=== PATIENT | female | born 1980 | race Caucasian/White ===

== ENCOUNTER 2016-12-22 09:03 | Day surgery (SDC) | payer MEDICAID, OTHER ==
[2016-12-22] VITALS (13 sets, daily range): BP systolic 98–125; BP diastolic 48–65; PULSE 64–78; RESP 12–26; Ht 165.1 cm; Wt 74.0 kg
[~2016-12-22] VITALS: Ht 165.1 cm; Wt 74.0 kg
[2016-12-22 10:24] LABS: ADD SCAN DIFF NO
[2016-12-22 10:30] LABS: BASOPHILS % 0.3 % (0.0-2.0); EOSINOPHILS # 0.1 10^3/ul (0.0-0.5); EOSINOPHILS % 1.2 % (0.0-7.0); HEMOGLOBIN 13.3 g/dl (12.0-16.0); LYMPHOCYTES # 1.8 10^3/ul (0.8-2.9); LYMPHOCYTES % 29.8 % (15.0-51.0); MEAN CORPUSCULAR HEMOGLOBIN 31.4 pg (29.0-33.0); MEAN CORPUSCULAR VOLUME 89.6 fl (82.0-101.0); MEAN PLATELET VOLUME 10.2 fl (7.4-10.4); MONOCYTE # 0.5 10^3/ul (0.3-0.9); MONOCYTES % 7.9 % (0.0-11.0); NEUTROPHIL # 3.7 10^3/ul (1.6-7.5); NEUTROPHILS % 60.6 % (39.0-77.0); PLATELET COUNT 239 10^3/UL (140-415); RED BLOOD COUNT 4.24 10^6/ul (4.20-5.40); WHITE BLOOD COUNT 6.1 10^3/ul (4.8-10.8)
--- NOTE | 2016-12-22 10:38 | RADRPT ---
PROCEDURE: US OB. CLINICAL INDICATION: Missed TECHNIQUE: Transabdominal and endovaginal imaging of the gravid uterus is available for review COMPARISON: None available FINDINGS: There is a single intrauterine with a crown-rump length of 2.52 cm, giving an estimated ge stational age of 9 weeks 6 days by ultrasound criteria. No heart tones are detected. There is prominence of the nuchal fold. No subchorionic hemorrhage is identified. There is a 5.8 x 5.7 x 6. 0 cm right lateral intramural fibroid. The ovaries demonstrate a left ovarian corpus luteum cyst. IMPRESSION: 1. Single intrauterine with an estimated gestational age of 9 weeks 6 days by ultrasound criteria. No heart tones are detected. Findings are compatible with early failed . 2. Prominent nuchal fold. 3. Right lateral uterine body intramural fibroid measuring 5.8 x 5.7 x 6.0 cm. RPTAT: HH .Janice Krause MD, Date Time Electronically viewed and signed by .Janice Krause MD, on 12/22/2016 10:38 .G/
[2016-12-22] MEDS ORDERED: FENTAnyl 50 MCG/ML VIAL ONE (13:18)
[2016-12-22] MEDS ORDERED: PROPOFOL 20 ML ONE (13:18)
[2016-12-22] MEDS ORDERED: MIDAZOLAM 1 MG/ML 2 ML INJ ONE (13:18)
[2016-12-22] MEDS ORDERED: METOCLOPRAMIDE 10 MG INJ ONE (13:19)
[2016-12-22] MEDS ORDERED: OXYTOCIN 10 UNIT INJ ONE (13:37)
[2016-12-22] MEDS ORDERED: KETOROLAC 30 MG INJ ONE (13:40)
[2016-12-22] MEDS ORDERED: METHYLERGONOVINE 0.2 MG INJ ONE (13:43)
--- NOTE | 2016-12-22 13:50 | PDOCDIS ---
Discharge Instructions CONDITION Patient Condition: Good HOME CARE INSTRUCTIONS: Diet Instructions: Regular ACTIVITY: Activity Restrictions: No Sexual Activity Do not Drive Bathing Restrictions: Shower FOLLOW UP/APPOINTMENTS Appointments appointment ,office in 1 week BRIGIDA MIDDLETON MD Dec 22, 2016 13:50
--- NOTE | 2016-12-22 13:59 | DS ---
Date/Time of Note Date/Time of Note DATE: 12/22/16 TIME: 13:53 Discharge Summary Admission/Discharge Info Admit Date/Time 12/22/16 Discharge Date/Time 12/22/16 Final Diagnosis missed Patient Condition: Good Procedures dilatation suction curettage Hx of Present Illness missed 9 weeks Hospital Course good Home Meds No Active Prescriptions or Reported Meds Follow-up Plan appointment office in one week Pending Labs Laboratory Tests Test 12/22/16 09:50 White Blood Count 6.110^3/ul (4.8-10.8) Red Blood Count 4.2410^6/ul (4.20-5.40) Hemoglobin 13.3g/dl (12.0-16.0) Hematocrit 38.0% (37.0-47.0) Mean Corpuscular Volume 89.6fl (82.0-101.0) Mean Corpuscular Hemoglobin 31.4pg (29.0-33.0) Mean Corpuscular Hemoglobin Concent 35.0g/dl (32.0-37.0) Red Cell Distribution Width 12.0% (11.5-14.5) Platelet Count 76865^3/UL (140-415) Mean Platelet Volume 10.2fl (7.4-10.4) Neutrophils % 60.6% (39.0-77.0) Lymphocytes % 29.8% (15.0-51.0) Monocytes % 7.9% (0.0-11.0) Eosinophils % 1.2% (0.0-7.0) Basophils % 0.3% (0.0-2.0) Nucleated Red Blood Cells % 0.0/100WBC (0.0-0.0) Neutrophils # 3.710^3/ul (1.6-7.5) Lymphocytes # 1.810^3/ul (0.8-2.9) Monocytes # 0.510^3/ul (0.3-0.9) Eosinophils # 0.110^3/ul (0.0-0.5) Basophils # 0.010^3/ul (0.0-0.1) Nucleated Red Blood Cells # 0.010^3/ul (0.0-0.0) BRIGIDA MIDDLETON MD Dec 22, 2016 13:59
[2016-12-22] MEDS ORDERED: HYDROmorphONE (0.2 MG/ML) 10ML SYG IV PRN ×3 (14:00)
[2016-12-22] MEDS ORDERED: MEPERIDINE 25 MG INJ IV PRN (14:00)
[2016-12-22] MEDS ORDERED: DIPHENHYDRAMINE 50 MG INJ IV PRN (14:00)
[2016-12-22] MEDS ORDERED: IBUPROFEN 600 MG TAB PO PRN (14:00)
[2016-12-22] MEDS ORDERED: KETOROLAC 30 MG INJ IV PRN (14:00)
--- NOTE | 2016-12-22 14:06 | OPR ---
DATE OF OPERATION: 12/22/2016 PREOPERATIVE DIAGNOSIS: Missed at 10 weeks' gestation. POSTOPERATIVE DIAGNOSIS: Missed at 10 weeks' gestation. PROCEDURE: Dilatation and suction curettage. SURGEON: Brigida Middleton MD ANESTHESIA: General. ANESTHESIOLOGIST: Sue Shukla MD DETAILS OF THE PROCEDURE: Under satisfactory general anesthesia, the patient was prepped and draped and placed in dorsal lithotomy position. Bimanual pelvic examination: Normal marital introitus, n ormal vagina, cervix multiparous. Uterus 10 weeks' size. Adnexa not palpable. Weighted speculum i ntroduced into the vagina. Anterior cervical lip grasped by Nixon tenaculum. Uterine cavity sounde d, measured 11 cm. Cervical dilatation further advanced with Daniele dilator. Vacurette #9 was used f or vacuum suction and it was followed with a #8 Vacurette and the entire uterine cavity from 12 o'cl ock counterclockwise curetted gently with a medium sized sharp curette. The entire specimen submitt ed to pathology. The patient tolerated the procedure well. Estimated blood loss 100 mL. She was t ransferred to recovery room in a good condition. Dictated By: BRIGIDA MIDDLETON MD HF/NTS Conf#: [id number] DID#: [id number]
== END 2016-12-22 15:20 | disposition home or self-care (01) ==
LOC: SDS 09:03
PROVIDERS: ATTEND Obstetrics & Gynecology
DX: O01.9 Hydatidiform mole, unspecified (principal)
CPT/HCPCS: 59870; 76801; 76817; 85025; 86850; 86900; 86901; 88305; J1885; J2210; J2250; J2590; J2765; J3010; Z7512; Z7610

== ENCOUNTER 2017-01-05 10:37 | Day surgery (SDC) | payer OTHER ==
[~2017-01-05] VITALS: Ht 165.1 cm; Wt 70.9 kg
[2017-01-05] VITALS (13 sets, daily range): BP systolic 115–131; BP diastolic 60–83; PULSE 56–96; RESP 10–20; Ht 165.1 cm; Wt 70.9 kg
[~2017-01-05 10:37] MED LIST: SEVOFLURANE 15 MIN ONE
[2017-01-05] MEDS ORDERED: MIDAZOLAM 1 MG/ML 2 ML INJ ONE (11:16)
[2017-01-05] MEDS ORDERED: FENTAnyl 50 MCG/ML VIAL ONE (11:16)
[2017-01-05] MEDS ORDERED: DEXAMETHASONE 4 MG/ML 1 ML INJ ONE (11:16)
[2017-01-05] MEDS ORDERED: LIDOCAINE 2% (SDV) 5 ML INJ ONE (11:16)
[2017-01-05] MEDS ORDERED: PROPOFOL 20 ML ONE (11:16)
[2017-01-05] MEDS ORDERED: ONDANSETRON 4 MG INJ ONE (11:16)
[2017-01-05 11:44] LABS: ADD SCAN DIFF NO
[2017-01-05 11:50] LABS: ADD UMIC YES; URINE BILIRUBIN (Dip) NEGATIVE (NEGATIVE); URINE BLOOD (Dip) 3+ (NEGATIVE); URINE COLOR LT. YELLOW (YELLOW); URINE GLUCOSE (Dip) NEGATIVE (NEGATIVE); URINE KETONES (Dip) NEGATIVE (NEGATIVE); URINE LEUKOCYTE ESTERASE (Dip) 1+ (NEGATIVE); URINE NITRITE (Dip) NEGATIVE (NEGATIVE); URINE TOTAL PROTEIN (Dip) NEGATIVE (NEGATIVE); URINE UROBILINOGEN (Dip) 0.2 E.U./dL (0.1-1.0)
[2017-01-05 11:52] LABS: BASOPHILS % 0.7 % (0.0-2.0); EOSINOPHILS # 0.1 10^3/ul (0.0-0.5); EOSINOPHILS % 1.9 % (0.0-7.0); HEMATOCRIT 41.6 % (37.0-47.0); HEMOGLOBIN 14.1 g/dl (12.0-16.0); LYMPHOCYTES # 2.3 10^3/ul (0.8-2.9); LYMPHOCYTES % 39.2 % (15.0-51.0); MEAN CORPUSCULAR HEMOGLOBIN 31.1 pg (29.0-33.0); MEAN CORPUSCULAR HGB CONC 33.9 g/dl (32.0-37.0); MEAN CORPUSCULAR VOLUME 91.6 fl (82.0-101.0); MEAN PLATELET VOLUME 9.9 fl (7.4-10.4); MONOCYTE # 0.5 10^3/ul (0.3-0.9); MONOCYTES % 7.7 % (0.0-11.0); NEUTROPHIL # 2.9 10^3/ul (1.6-7.5); NEUTROPHILS % 50.3 % (39.0-77.0); PLATELET COUNT 273 10^3/UL (140-415); RED BLOOD COUNT 4.54 10^6/ul (4.20-5.40); WHITE BLOOD COUNT 5.8 10^3/ul (4.8-10.8)
--- NOTE | 2017-01-05 11:58 | HP ---
Date/Time of Note Date/Time of Note DATE: 01/05/17 TIME: 11:48 Assessment/Plan VTE Prophylaxis VTE Prophylaxis Intervention: ambulation Lines/Catheters IV Catheter Type (from [facility]): Peripheral IV Assessment/Plan Assessment/Plan 36-year-old History of intrauterine embryonic demise, missed Status post D&C Pathology showed molar, ? . HCG, and 900s range Repeat ultrasound showed some echogenic material inside the uterine cavity, Patient started having bleeding again Candidate for hysteroscopy, possible D&C, possible removal of retained POC. Risk and benefit of procedure including risk of infection, bleeding, damage to surrounding structures including bowel and bladder and risk of uterine perforation, discussed with the patient. Risk of blood transfusion in case if necessary including risk of blood-borne infection including HIV, hepatitis B and C and transfusion reactions discussed with the patient in detail Informed consent was obtained Patient received 100 mg doxycycline prior to be taken to the OR I have discussed with the patient that in case of missed the pathology finding sometimes correlates with some hydropic changes that could be reported as molar . She understands that after this procedure she need to have a close follow-up with her primary biometry teacher Dr. Underwood for pathology report and for final polyp follow-up plan Patient verbalized understanding. All questions were answered to the patient's best satisfaction. HPI/ROS Admit Date/Time Admit Date/Time 01/05/2017 Hx of Present Illness patient is a 36 years old AA female that had been seen and that Dr. Underwood 's office for follow-up after D&C done for intrauterine embryonic demise About 2 weeks ago. Patient reports her LMP was September 30, 2016. She had an ultrasound earlier at the beginning of at about 6-7 weeks at [facility] and was diagnosed with a normal IUP. Cardiac activity was present. She had a follow-up 2 weeks later with repeat ultrasound that did not show any cardiac activity. She also had another repeat ultrasound next day at breast imaging center next to [facility] that confirmed antibiotic demise. Patient sent subsequently to Dr. Underwood due to intrauterine numbering device and underwent D&C 2 weeks ago. Pathology reported molar . Patient had a started having vaginal bleeding since yesterday. Her repeat ultrasound last week in the office showed thickened endometrium with some echogenic material inside the uterine cavity, questionable for retained POC. Her hCG is currently 900. Patient was a scheduled today for ROS Subjective hx not possible: pt non-verbal Constitutional: no complaints Eyes: no complaints ENT: no complaints Respiratory: no complaints Cardiovascular: no complaints Gastrointestinal: no complaints Genitourinary: bleeding Musculoskeletal: no complaints Skin: no complaints Neurologic: no complaints Endocrine: no complaints Lymphatic: no complaints Psychological: no complaints Immunologic: no complaints PMH/Family/Social Past Medical History none Past Surgical History D&C x 1 Tonsillectomy Family History Significant Family History: no pertinent family hx Social History Alcohol Use: occasionally Smoking Status: Former smoker Drug Use: none Exam/Review of Systems Vital Signs Vitals Vital Signs Date Time Temp Pulse Resp B/P Pulse Ox O2 Delivery O2 Flow Rate FiO2 01/05/17 11:27 97.7 69 20 115/72 98 Room Air Exam Constitutional: alert, oriented, well developed Psych: nl mood/affect, no complaints Head: atraumatic, normocephalic Eyes: nl conjunctiva ENMT: nl external ears & nose, nl lips & teeth Neck: non-tender, supple Respiratory: clear to auscultation Cardiovascular: nl pulses, regular rate and rhythm Gastrointestinal: nl liver, spleen, soft Genitourinary - Female: nl adnexae, nl external genitalia, uterus (There is a 2 and half centimeter posterior uterine fibroid palpable through the cul-de-sac as well as a 1 x 1 cm soft smooth vaginal cyst in the upper vaginal wall in the right side palpable. Uterus about 10 cm size. No tenderness. No CMT.. There is no fullness in adnexa noted. No tenderness in adnexa. Speculum vaginal examination: Cervix appeared to be closed and long. Scant amount of brownish vaginal discharge noted. No abnormal other vaginal discharge noted.) Musculoskeletal: nl extremities to inspection, nl gait and stance Extremities: normal pulses Neurological: [employer] II-XII intact, nl mental status, nl speech Medications Medications Current Medications Doxycycline Hyclate/Sodium Chloride (Vibramycin/NS) 250 ml @ 250 mls/hr ONCE IVPB ; Start 01/05/17 at 12:00; Stop 01/05/17 at 19:00 BO EDMOND MD Jan 05, 2017 11:58 BO EDMOND MD Jan 05, 2017 11:58
[2017-01-05] MEDS ORDERED: DOXYCYCLINE 100 MG in SOD CHLORIDE 0.9% 250 ML IVPB SCH (12:00)
[2017-01-05] MEDS ORDERED: HYDROmorphONE (0.2 MG/ML) 10ML SYG IV PRN ×3 (12:00)
[2017-01-05] MEDS ORDERED: FENTAnyl 50 MCG/ML VIAL IV PRN ×3 (12:00)
[2017-01-05] MEDS ORDERED: MEPERIDINE 25 MG INJ IV PRN (12:00)
[2017-01-05] MEDS ORDERED: ONDANSETRON 4 MG INJ IV PRN (12:00)
[2017-01-05] MEDS ORDERED: DIPHENHYDRAMINE 50 MG INJ IV PRN (12:00)
[2017-01-05 12:11] LABS: BACTERIA,URINE OCCASIONAL
[2017-01-05 12:35] LABS: INR 0.99; PROTIME 13.1 Sec (12.2-14.2)
[2017-01-05 12:36] LABS: PARTIAL THROMBOPLASTIN TIME 30.7 Sec (25.0-35.0)
[2017-01-05] MEDS ORDERED: FAMOTIDINE 20 MG INJ ONE (12:39)
[2017-01-05] MEDS ORDERED: KETOROLAC 30 MG INJ ONE (12:56)
[2017-01-05] MEDS ORDERED: METHYLERGONOVINE 0.2 MG INJ ONE (13:00)
[2017-01-05] MEDS ORDERED: IBUPROFEN 600 MG TAB PO PRN (13:30)
[2017-01-05] MEDS ORDERED: KETOROLAC 30 MG INJ IV PRN (13:30)
--- NOTE | 2017-01-05 13:35 | DS ---
Date/Time of Note Date/Time of Note DATE: 01/05/17 TIME: 13:27 Discharge Summary Admission/Discharge Info Admit Date/Time 36 years old female admitted to [facility] for ultrasound diagnosed thickening of endometrium 20 mm status post missed D&C underwent hysteroscopy D&C some tissues obtained were submitted for the pathology patient postoperative course and condition at the time of discharge satisfactory, she is discharged home with follow-up instruction to be seen in the office in 1 week and to be followed with hCG quantitative. Discharge Date/Time January 05, 2017 Final Diagnosis Endometrial thickening possible retained products of conception Patient Condition: Good Procedures Hysteroscopic diagnostic curettage for endometrial thickening and questionable partial molar degeneration Hx of Present Illness patient is a 36 years old AA female that had been seen and that Dr. Middleton 's office for follow-up after D&C done for intrauterine embryonic demise About 2 weeks ago. Patient reports her LMP was September 30, 2016. She had an ultrasound earlier at the beginning of at about 6-7 weeks at [facility] and was diagnosed with a normal IUP. Cardiac activity was present. She had a follow-up 2 weeks later with repeat ultrasound that did not show any cardiac activity. She also had another repeat ultrasound next day at breast imaging center next to [facility] that confirmed antibiotic demise. Patient sent subsequently to Dr. Middleton due to intrauterine numbering device and underwent D&C 2 weeks ago. Pathology reported molar . Patient had a started having vaginal bleeding since yesterday. Her repeat ultrasound last week in the office showed thickened endometrium with some echogenic material inside the uterine cavity, questionable for retained POC. Her hCG is currently 900. Patient was a scheduled today for Hospital Course Satisfactory Home Meds No Active Prescriptions or Reported Meds Follow-up Plan Recommended take appointment for 1 week to be seen at the clinic, post D&C precautionary measure including pelvic rest and no items in the vagina no douching discussed with the patient Pending Labs Laboratory Tests Test 01/05/17 11:20 01/05/17 12:15 White Blood Count 5.810^3/ul (4.8-10.8) Red Blood Count 4.5410^6/ul (4.20-5.40) Hemoglobin 14.1g/dl (12.0-16.0) Hematocrit 41.6% (37.0-47.0) Mean Corpuscular Volume 91.6fl (82.0-101.0) Mean Corpuscular Hemoglobin 31.1pg (29.0-33.0) Mean Corpuscular Hemoglobin Concent 33.9g/dl (32.0-37.0) Red Cell Distribution Width 12.0% (11.5-14.5) Platelet Count 06805^3/UL (140-415) Mean Platelet Volume 9.9fl (7.4-10.4) Neutrophils % 50.3% (39.0-77.0) Lymphocytes % 39.2% (15.0-51.0) Monocytes % 7.7% (0.0-11.0) Eosinophils % 1.9% (0.0-7.0) Basophils % 0.7% (0.0-2.0) Nucleated Red Blood Cells % 0.0/100WBC (0.0-0.0) Neutrophils # 2.910^3/ul (1.6-7.5) Lymphocytes # 2.310^3/ul (0.8-2.9) Monocytes # 0.510^3/ul (0.3-0.9) Eosinophils # 0.110^3/ul (0.0-0.5) Basophils # 0.010^3/ul (0.0-0.1) Nucleated Red Blood Cells # 0.010^3/ul (0.0-0.0) Urine Color LT. YELLOW (YELLOW) Urine Clarity CLEAR (CLEAR) Urine pH 6.0 (5.0-9.0) Urine Specific [place] 1.020 (1.003-1.030) Urine Ketones NEGATIVE (NEGATIVE) Urine Nitrite NEGATIVE (NEGATIVE) Urine Bilirubin NEGATIVE (NEGATIVE) Urine Urobilinogen 0.2 E.U./dL (0.1-1.0) Urine Leukocyte Esterase 1+ (NEGATIVE) Urine Microscopic RBC 5-10/HPF (0) Urine Microscopic WBC 2-5/HPF (0) Urine Epithelial Cells OCCASIONAL Urine Bacteria OCCASIONAL Urine Hemoglobin 3+ (NEGATIVE) Urine Glucose NEGATIVE% (NEGATIVE) Urine Total Protein NEGATIVE (NEGATIVE) Prothrombin Time 13.1Sec (12.2-14.2) Prothrombin Time Ratio 1.0 INR International Normalized Ratio 0.99 Activated Partial Thromboplast Time 30.7Sec (25.0-35.0) Beta HCG, Quantitative 132.8mIU/ml BRIGIDA MIDDLETON MD Jan 05, 2017 13:35
--- NOTE | 2017-01-05 13:51 | OPR ---
Operative Report Planned Procedure Procedure date Jan 05, 2017 Procedure(s) Diagnostic hysteroscopy Removal of retained POC Performed by: BO EDMOND MD Assisting provider: BRIGIDA MIDDLETON MD Pre-procedure diagnosis Retained POC Concerned about ? molar reported in path report Thicked endometrium in pelvic ultrasound persistent HCG Continued vaginal bleeding after D&C Procedure Description After discussion with the patient about the risk and benefit of procedure including risk of infection, bleeding, damage to surrounding structures including bowel and bladder and uterine perforation and risk of bleeding that may require blood transfusion and the risk of blood transfusion including but not limited to blood borne infection including HIV, hepatitis B and C and transfusion reactions informed consent was obtained. Patient received a dose of doxycycline 100 mg prior to be taken to the OR. Patient was then taken to the OR and was placed in the dorsal lithotomy position. Timeout procedure was completed. Patient identified correctly. Prepped and draped under sterile fashion performed. Exam under anesthesia performed. Uterus was noted to be about 10 cm size. There was an posterior uterine fibroid about 3 and half by 3 and half centimeter and 1 x 1 cm upper vaginal cyst then first a bivalve speculum was placed inside the vagina. Anterior lip of the cervix was grasped with tenaculum.. Using normal saline and diagnostic hysteroscopy with a 5 mm hysteroscope after dilatation of the cervix using Raman dilators, and after adequate dilation using Raman dilator #12 that easily accommodate the cervix first under direct visualization hysteroscope was passed inside the uterine cavity. The uterus is distended. All entire uterine cavity and 360 evaluated. Both ostia were identified. There was evidence of small amount of POC in the lower uterine segment as well as small amount of blood clot in the upper part of the uterus. Then using TRUCLEAR device the remainder POC was completely removed. The entire uterine cavity evaluated and was noted to be free of any retained POC. No complication noted. Then at this point the hysteroscope was removed. The tenaculum from anterior lip of the cervix was removed. There was some bleeding noted that controlled by uterine massage. Then the tenaculum was removed from anterior lip of the cervix. Hemostasis was noted to be complete and patient tolerated the procedure well. Sponge lap and needle counts were correct 2. Patient was transferred to recovery room in stable condition. Post-Procedure Post-procedure diagnosis Small retained POC No clear evidence of gross hydropic degeneration or molar noted Will await for final diagnosis with pathology Specimen removed: Yes Complications: None Pt Condition post procedure: stable Disposition: PACU Physician Certification I, the undersigned physician, hereby certify that I have discussed the procedure described in this consent form with this patient (or the patient's legal tour sales representative), including: * The risk and benefits of the procedure; * Any adverse reactions that may reasonably be expected to occur; * Any alternative efficacious methods of treatment which may be medically viable ; * The potential problems that may occur during recuperation; * Potential for blood transfusion and associated risks/benefits; and * Any research or economic interest I may have regarding this treatment. I further certify that the patient/legally responsible person was encouraged to ask question and that all questions were answered. BO EDMOND MD Jan 05, 2017 13:50
== END 2017-01-05 15:25 | disposition home or self-care (01) ==
LOC: SDS 10:37
PROVIDERS: ATTEND Obstetrics & Gynecology
DX: R93.8 Abnormal findings on diagnostic imaging of other specified body structures (principal); Z87.891 Personal history of nicotine dependence
CPT/HCPCS: 58558; 81001; 84702; 85025; 85610; 85730; 86900; 86901; 88305; J1100; J1885; J2210; J2250; J2405; J3010; J7050; Z7512; Z7610; 81003

== ENCOUNTER 2018-01-04 16:53 | Outpatient (CLI) | END 2018-01-04 18:33 | disposition home or self-care (01) ==

== ENCOUNTER 2018-01-10 18:32 | Outpatient (CLI) | END 2018-01-10 22:10 | disposition home or self-care (01) ==

== ENCOUNTER 2018-01-11 15:23 | Outpatient (CLI) | END 2018-01-11 17:30 | disposition home or self-care (01) ==

== ENCOUNTER 2018-01-14 19:14 | Outpatient (CLI) | END 2018-01-14 21:20 | disposition home or self-care (01) ==

== ENCOUNTER 2018-01-17 14:57 | Inpatient (IN) | END 2018-01-20 18:52 | disposition home or self-care (01) | DRG 775 ==